=== PATIENT | female | born 1995 | race Caucasian/White ===

== ENCOUNTER 2018-12-05 09:56 | Emergency (ER) | payer BC ==
--- OUTSIDE RECORDS SUMMARY | 2018-12-05 10:10 | XMS REPORT | Continuity of Care Document ---
:1995 External Reference #:[id number] Author Name Gary Garnica MD Address [address] [place] [address] Problems Active Problems Provider Date Allergy Gary Garnica MD Onset: 07/31/2011 Anxiety state Blanka Cuellar PA-C Onset: 11/12/2015 Anemia Blanka Cuellar PA-C Onset: 11/12/2015 Indigestion Blanka Cuellar PA-C Onset: 11/12/2015 Social History Type Date Description Comments Sex Unknown Tobacco Use Reviewed: 11/06/17 Never Smoked Cigarettes ETOH Use Denies alcohol use Tobacco Use Reviewed: 10/21/18 Patient has never smoked Smoking Status Reviewed: 10/21/18 Patient has never smoked Exercise Type/Frequency Dances 3 times a week Allergies, Adverse Reactions, Alerts Description No Known Drug Allergies Medications Active Medications SIG Qnty Indications Ordering Provider Date Ferrous Sulfate 1 by mouth 90tabs D50.8 Gary Garnica MD 07/13/2014 325(65Fe) every day mg Tablets DR D64.9 Fluoxetine HCL 1 by mouth every 90caps F41.9 Gary Garnica MD 12/16/2013 20mg Capsules day F41.1 Depo-Provera 150mg intramuscular every 3 Unknown 150mg/ml Suspension months Medications Administered in Office Medication SIG Qnty Indications Ordering Provider Date TB Intradermal Test PRATIBHA Bell 10/27/2013 Injection Immunizations CPT Code Status Date Vaccine Lot # [id number] Given 11/08/2016 MMR Vaccine [id number] Given 10/27/2016 Hepatitis A Adult Vaccine 19+ (Vacta A Adult) [id number] 60674 Given 06/17/2016 Gardasil 9, HPV Nonavalent [id number] 29844 Given 02/14/2016 Gardasil 9, HPV Nonavalent [id number] 56706 Given 12/10/2015 Gardasil 9, HPV Nonavalent [id number] 40752 Given 02/03/2013 Menactra - Meningococcal Conjugate Vaccine [id number] 65044 Given 07/27/2010 Hepatitis A Vaccine Peds/Adoles. (To Age 19) 2 Dose Schedule 91449 Given 11/14/2007 Menactra - Meningococcal Conjugate Vaccine 82870 Given 11/14/2007 Varicella (Chicken Pox) Vaccine 38991 Given 11/14/2007 Adacel - Tdap [facility] 56168-914-49 03/20 cc 91158 Given 11/14/2007 Flu Mist (Age 2-49) Live Vaccine- 38238 Given 08/01/2006 Hepatitis B Vaccine Pediatric/Adolescent 25409 Given 08/06/2001 Poliovirus Vaccine Subcutaneous 45376 Given 08/06/2001 MMR Vaccine 89079 Given 08/06/2001 Daptacel - DTaP Vaccine 36918 Given 12/21/1997 Daptacel - DTaP Vaccine 06625 Given 08/26/1997 MMR Vaccine 39077 Given 08/26/1997 Hib PRP-T Conjugate 4 Dose Schedule 13213 Given 06/03/1997 Varicella (Chicken Pox) Vaccine 70261 Given 06/03/1997 Poliovirus Vaccine Subcutaneous 46368 Given 03/02/1997 Hepatitis B Vaccine Pediatric/Adolescent 18149 Given 1996 Daptacel - DTaP Vaccine 67010 Given 1996 Hib PRP-T Conjugate 4 Dose Schedule 84282 Given 1996 Poliovirus Vaccine Subcutaneous 15492 Given 1996 Daptacel - DTaP Vaccine 74110 Given 1996 Hib PRP-T Conjugate 4 Dose Schedule 09556 Given 1996 Hepatitis B Vaccine Pediatric/Adolescent 74913 Given 1996 Poliovirus Vaccine Subcutaneous 58149 Given 1996 Daptacel - DTaP Vaccine 60278 Given 1996 Hib PRP-T Conjugate 4 Dose Schedule 35002 Given 1996 Hepatitis B Vaccine Pediatric/Adolescent Vital Signs Date Vital Result Comment 10/21/2018 1:16pm BP Systolic 108 mmHg BP Diastolic 64 mmHg Heart Rate 70 /min Body Temperature 98.0 F Respiratory Rate 16 /min Weight 124.00 lb Weight 56.246 kg Height 61.5 inches 5'1.50" BMI (Body Mass Index) 23.0 kg/m2 11/06/2017 8:18am BP Systolic 122 mmHg BP Diastolic 80 mmHg Heart Rate 94 /min Body Temperature 98.1 F Respiratory Rate 16 /min Weight 111.00 lb Weight 50.350 kg Height 61.5 inches 5'1.50" BMI (Body Mass Index) 20.6 kg/m2 Results Test Date Facility Test Result H/L Range Note CBC/Automated Differential 10/21/2018 [facility] WBC 7.58 k/uL 4.60- 10.20 Abs Neut 4.66 2.00-7.50 % Neut 61.6 % 37.0-80.0 Abs Lymphs 2.03 K/UL 1.20-4.80 % Lymphs 26.8 % 10.0-50.0 Abs Monos 0.679 0.000-0.900 % Monos 8.96 % 0.00-12.00 Abs Eos 0.109 0.000-0.700 % Eos 1.44 % 0.00-7.00 Abs Basos 0.093 0.000-0.200 % Baso 1.22 % 0.00-4.00 RBC 5.21 m/uL 4.04-6.13 Hemoglobin 13.7 g/dL 12.2-18.1 Hematocrit 41.3 % 37.7-47.0 MCV 79.2 fL Low 80.0-97.0 MCH 26.2 pg Low 27.0-31.2 MCHC 33.1 g/dL 31.8-35.4 RDW 10.9 % Low 11.6-14.8 Platelet 293 K/uL 142-424 MPV 9.4 fL 0.0-99.9 Comprehensive Metabolic 10/21/2018 [facility] Glucose 86.00 mg/dL 70.00- 110.00 Panel Urea Nitrogen 8 mg/dL 7-19 Creatinine 0.8 mg/dL 0.6-1.1 GFR 99.29 mL/min 1 Sodium 137 mmol/L 136-145 Potassium 4.5 mmol/L 3.5-5.1 Chloride 105 mmol/L 98-107 Total Protein 7.4 g/dL 6.4-8.3 Alb P 4.40 g/dL 3.30-5.00 Alanine Aminotransferase 12 U/L 0-55 Aspartate Aminotransferase 17 U/L 5-34 Alkaline Phosphatase 116 U/L 40-150 Carbon Dioxide 25.00 mmol/L 22.00-31.00 Albumin/Globulin 1.47 Ratio Osmolality 281.63 275.00-295.00 Calcium 10.40 mg/dL 8.90-10.40 Total Bilirubin 0.5 mg/dL 0.2-1.2 Globulin 3.00 2.30-4.20 BUN/Creatinine 10.39 Ratio Laboratory test finding 10/21/2018 [facility] Folic Acid 10.80 ng/mL 7.00-31.40 Iron 106.00 g/dL 25.00-156.00 Free T4 1.15 ng/dL 0.70-1.48 TSH 1.030 uIU/mL 0.350-4.940 Anti Thyroid Antibodies 10/21/2018 [facility] Thyroglobulin Ab <20 IU/mL (<40) 2 Anti-Microsomal (Anti-Tpo) 13 IU/mL (<35) 3 1 NORMAL FUNCTION OR MILD RENAL DISEASE:>60 ml/min ADVANCED RENAL DISEASE:15-59 ml/min RENAL FAILURE:<15 ml/min 2 Unless otherwise specified, testing performed by Laboratory [facility] [address] [place] [id number] 3 Unless otherwise specified, testing performed by [facility] [address] [place] [id number] Procedures Description No Information Available Medical Devices Description No Information Available Encounters Type Date Location Provider Dx Diagnosis Office Visit 10/21/2018 [address] Gary Garnica, E04.1 Nontoxic single 1:00p thyroid nodule D64.9 Anemia, unspecified F41.1 Generalized anxiety disorder Assessments Date Code Description Provider 10/21/2018 E04.1 Nontoxic single thyroid nodule Gary Garnica MD 10/21/2018 D64.9 Anemia, unspecified Gary Garnica MD 10/21/2018 F41.1 Generalized anxiety disorder Gary Garnica MD Plan of Treatment 10/21/2018 - Gary Garnica MDE04.1 Nontoxic single thyroid noduleNew Xrays: Thyroid/Parathyroid Ultrasound, Ordered: 10/21/18Comments: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 we will check labs today and notify her of results order for sonogram given to patient to have at [id number] Anemia, unspecifiedComments: Continue with current medications. we will check labs today and notify her of [id number] Generalized anxiety disorderComments:Take medication as prescribed. Pt advised to exercise regularly to help promote feeling good, and follow healthy diet. Try exercising with a friend to help motivate. Call with any persistent or worsening symptoms. Functional Status Functional Condition Comment Date Status .None 07/31/2011 Active Mental Status Description No Information Available Referrals Description No Information Available
--- OUTSIDE RECORDS SUMMARY | 2018-12-05 10:10 | XMS REPORT | Continuity of Care Document ---
:1995 External Reference #:[id number] Author Name Gary Garnica MD Address [address] [place] [address] Problems Active Problems Provider Date Allergy Gary [...] CPT Code Status Date Vaccine Lot # [id number] Given 11/08/2016 MMR Vaccine [id number] 96785 Given 10/27/2016 Hepatitis A Adult Vaccine 19+ (Vacta A Adult) [id number] 06494 Given 06/17/2016 Gardasil 9, HPV Nonavalent [id number] 73619 Given 02/14/2016 Gardasil 9, HPV Nonavalent [id number] 33774 Given 12/10/2015 Gardasil 9, HPV Nonavalent [id number] 84891 Given 02/03/2013 Menactra - Meningococcal Conjugate Vaccine [id number] 47440 Given 07/27/2010 Hepatitis A Vaccine Peds/Adoles. (To Age 19) 2 Dose Schedule 61639 Given 11/14/2007 Menactra - Meningococcal Conjugate Vaccine 09617 Given 11/14/2007 Varicella (Chicken Pox) Vaccine 76634 Given 11/14/2007 Adacel - Tdap [facility] 45758-875-07 03/20 cc 49375 Given 11/14/2007 Flu Mist (Age 2-49) Live Vaccine- 59021 Given 08/01/2006 Hepatitis B Vaccine Pediatric/Adolescent 58318 Given 08/06/2001 Poliovirus Vaccine Subcutaneous 35063 Given 08/06/2001 MMR Vaccine 92389 Given 08/06/2001 Daptacel - DTaP Vaccine 94740 Given 12/21/1997 Daptacel - DTaP Vaccine 71770 Given 08/26/1997 MMR Vaccine 91033 Given 08/26/1997 Hib PRP-T Conjugate 4 Dose Schedule 32891 Given 06/03/1997 Varicella (Chicken Pox) Vaccine 73038 Given 06/03/1997 Poliovirus Vaccine Subcutaneous 10061 Given 03/02/1997 Hepatitis B Vaccine Pediatric/Adolescent 53795 Given 1996 Daptacel - DTaP Vaccine 13608 Given 1996 Hib PRP-T Conjugate 4 Dose Schedule 66931 Given 1996 Poliovirus Vaccine Subcutaneous 37660 Given 1996 Daptacel - DTaP Vaccine 07683 Given 1996 Hib PRP-T Conjugate 4 Dose Schedule 95824 Given 1996 Hepatitis B Vaccine Pediatric/Adolescent 83630 Given 1996 Poliovirus Vaccine Subcutaneous 68185 Given 1996 Daptacel - DTaP Vaccine 86803 Given 1996 Hib PRP-T Conjugate 4 Dose Schedule 00900 Given 1996 Hepatitis B Vaccine Pediatric/Adolescent Vital [...] Unless otherwise specified, testing performed by [facility] [address] [place] [id number] Unless otherwise specified, testing performed by [facility] [address] [place] [id number] Procedures Description No Information Available Medical Devices [...] - Gary Garnica MDE04.1 Nontoxic single thyroid noduleComments: 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 we will check labs today and notify her of results order for sonogram given to patient to have at [id number] Anemia, unspecifiedComments:Continue with current medications. we will check labs today and notify her of [id number] Generalized anxiety disorderComments:Take medication as prescribed. Pt advised to exercise regularly to help promote feeling good, and follow healthy diet. Try exercising with a friend to help motivate. Call with any persistent or worsening symptoms. Functional Status Functional Condition Comment Date Status .None 07/31/2011 Active Mental Status Description No Information Available Referrals Description No Information Available
[2018-12-05 11:07] LABS: Urine Appearance Cloudy; Urine Bacteria 1+ (Absent); Urine Bilirubin Negative (Negative); Urine Blood Negative (Negative); Urine Color Yellow; Urine Glucose Negative (Negative); Urine Ketones Trace (Negative); Urine Nitrite Negative (Negative); Urine Protein 1+(30 mg/dL) (Negative); Urine Red Blood Cell 2+(6-10/hpf) (Absent); Urine Specific Gravity 1.038 (1.010-1.030); Urine Squamous Epithelial Cell Present (Absent); Urine Urobilinogen Negative (Negative); Urine White Blood Cell Trace(0-5/hpf) (Absent)
[2018-12-05] MEDS ORDERED: Ketorolac INJ* 30 MG/ML 1 ML VIAL IV PUSH ONE (12:48)
[2018-12-05] MEDS ORDERED: Ondansetron INJ* 2 MG/ML VIAL IV ONE (12:48)
[2018-12-05] MEDS ORDERED: NS 0.9% 1000 ML** 1,000 ML IV ONE (12:48)
--- NOTE | 2018-12-05 12:53 | ED ---
Abdominal Pain/Female - HPI Summary HPI Summary: Patient is a 23-year-old female who presents emergency department for acute right flank pain and right lower quadrant pain that started this morning. Associated symptoms of nausea, diarrhea and dark urine. Past medical history of depression. Receives Depo-Provera. No history of kidney stones. Pain is constant and sharp in nature. Denies associated symptoms of fever, vomiting, cough, sore throat. Symptoms are moderate in severity. No current modifying factors. - History of Current Complaint Chief Complaint: EDAbdPain Stated Complaint: FLANK PAIN PER PT Time Seen by Provider: 12/05/18 12:32 Pain Intensity: 6 Allergies/Adverse Reactions: Allergies Allergy/AdvReac Type Severity Reaction Status Date / Time No Known Allergies Allergy Verified 12/05/18 09:59 PMH/Surg Hx/FS Hx/Imm Hx Previously Healthy: Yes Infectious Disease History: No Infectious Disease History: Denies: Traveled Outside the [place] in Last 30 Days - Family History Known Family History: Positive: Non-Contributory - Social History Occupation: Employed Full-time Lives: With Family Alcohol Use: None Substance Use Type: Reports: None Smoking Status (MU): Never Smoked Tobacco Review of Systems Constitutional: Negative Negative: Fever, Chills ENT: Negative Cardiovascular: Negative Respiratory: Negative Positive: Abdominal Pain, Diarrhea, Nausea. Negative: Vomiting Positive: flank pain, hematuria Skin: Negative Neurological: Negative All Other Systems Reviewed And Are Negative: Yes Physical Exam Triage Information Reviewed: Yes Vital Signs On Initial Exam: Initial Vitals Temp Pulse Resp BP Pulse Ox 97.8 F 76 16 136/88 99 12/05/18 10:00 12/05/18 10:00 12/05/18 10:00 12/05/18 10:00 12/05/18 10:00 Vital Signs Reviewed: Yes Appearance: Positive: Pain Distress - Pt. lying in bed, appears uncomfortable but nontoxic. Skin: Positive: Warm, Dry Head/Face: Positive: Normal Head/Face Inspection Eyes: Positive: Normal, EOMI Neck: Positive: Supple Respiratory/Lung Sounds: Positive: Clear to Auscultation, Breath Sounds Present Cardiovascular: Positive: Normal, RRR Abdomen Description: Positive: Other: - Right CVA tenderness. Pain to RLQ on palpation with guarding. No rebound or guarding. Neurological: Positive: Normal, CN Intact II-III Psychiatric: Positive: Affect/Mood Appropriate Diagnostics - Vital Signs Vital Signs Temp Pulse Resp BP Pulse Ox 12/05/18 12:42 98.0 F 12/05/18 11:26 99.1 F 78 20 129/90 100 12/05/18 10:00 97.8 F 76 16 136/88 99 - Laboratory Lab Results: Lab Results 12/05/18 Range/Units 10:36 Urine Color Yellow Urine Appearance Cloudy Urine pH 5.0 (5-9) Ur Specific Halls 1.038 H (1.010-1.030) Urine Protein 1+(30 mg/dl) A (Negative) Urine Ketones Trace A (Negative) Urine Blood Negative (Negative) Urine Nitrate Negative (Negative) Urine Bilirubin Negative (Negative) Urine Urobilinogen Negative (Negative) Ur Leukocyte Esterase Negative (Negative) Urine WBC (Auto) Trace(0-5/hpf) (Absent) Urine RBC (Auto) 2+(6-10/hpf) A (Absent) Ur Squamous Epith Cells Present A (Absent) Calcium Oxalate Crystal Present A (Absent) Urine Bacteria 1+ A (Absent) Urine Glucose Negative (Negative) Urine Ascorbic Acid * A (Negative) Result Diagrams: 12/05/18 12:55 12/05/18 12:55 Lab Statement: Any lab studies that have been ordered have been reviewed, and results considered in the medical decision making process. Abdominal Pain Fem Course/Dx - Course Course Of Treatment: Patient presenting for right flank and right lower quadrant pain. She is afebrile with stable vital signs. Suspect ureterolithiasis versus ovarian cyst versus UTI versus appendicitis. IV Toradol , Zofran and fluids. Labs show leukocytosis of 14.8 and minimally elevated lactic acid 2.1. Urinalysis shows RBCs without signs of infection. CT scan shows a right 2 mm distal calculus with mild [place], reading per radiology. Reexamination patient is feeling better and pain is mild at this time. Results were discussed. We'll discharge home with a short prescription for hydrocodone , Flomax and Zofran. Advised to increase fluids, strain urine. Follow-up with urology if pain persists. To return to the ER for fever, uncontrolled vomiting , pain or if concerned. Patient understands and agrees with plan. - Diagnoses Differential Diagnosis: Positive: Appendicitis, Ovarian Cyst, Renal Colic, Urinary Tract Infection Provider Diagnoses: Urolithiasis Discharge ED - Sign-Out/Discharge Documenting (check all that apply): Patient Departure Patient Received Moderate/Deep Sedation with Procedure: No - Discharge Plan Condition: Improved Disposition: HOME Prescriptions: Hydrocodone/Acetaminophen [Hydrocodone-Acetamin 5-325 mg] 1 each PO Q6H #12 tablet MDD 4 Ondansetron TAB* [Zofran 4 MG Tab*] 4 mg PO Q6H PRN #12 tab PRN Reason: Nausea Tamsulosin CAP* [Flomax CAP*] 0.4 mg PO DAILY #5 cap Patient Education Materials: Kidney Stones (ED) Referrals: Danika CARL,Gary Carrion [Primary Care Provider] - Ryder Albert MD [Medical Doctor] - Additional Instructions: Follow up with urology if pain persist Medication as directed Increase fluids Strain urine Return to ER for uncontrolled pain/vomiting, fever, or if concerned - Billing Disposition and Condition Condition: IMPROVED Disposition: Home
[2018-12-05 13:05] LABS: ABS Basophils 0.1 10^3/ul (0-0.2); ABS Lymphocytes 0.8 10^3/ul (1.0-4.8); ABS Monocytes 0.8 10^3/ul (0-0.8); ABS Neutrophils 13.1 10^3/ul (1.5-7.7); Hematocrit 40 % (35-47); Hemoglobin 13.3 g/dL (12.0-16.0); Lymphocyte % 5.6 %; Mean Corpuscular HGB Conc 34 g/dL (31-36); Mean Corpuscular Hemoglobin 27 pg (27-31); Mean Corpuscular Volume 82 fL (80-97); Mean Platelet Volume 9.8 fL (7.4-10.4); Platelet Count 263 10^3/uL (150-450); Red Blood Count 4.85 10^6 /uL (3.70-4.87); Red Cell Distribution Width 13 % (10-15); White Blood Count 14.8 10^3/uL (3.5-10.8)
[2018-12-05 13:27] LABS: ALT 11 U/L (7-52); AST 19 U/L (13-39); Albumin 4.4 g/dL (3.2-5.2); Albumin/Globulin Ratio 1.8 (1-3); Alkaline Phosphatase 103 U/L (34-104); Anion Gap 11 mmol/L (2-11); BUN/Creatinine Ratio 11.1 (8-20); Blood Urea Nitrogen 10 mg/dL (6-24); C Reactive Protein 3.63 mg/L (<8.01); CO2 Carbon Dioxide 20 mmol/L (22-32); Calcium 9.6 mg/dL (8.6-10.3); Chloride 103 mmol/L (101-111); EGFR African American 94.7 (>60); EGFR Non-African American 78.3 (>60); Globulin 2.4 g/dL (2-4); Glucose 106 mg/dL (70-100); Potassium 3.6 mmol/L (3.5-5.0); Sodium 134 mmol/L (135-145); Total Protein 6.8 g/dL (6.4-8.9)
[2018-12-05 13:30] LABS: HCG Pregnancy < 0.60 mIU/mL
[2018-12-05 14:59] VITALS: BP 101/75
== END 2018-12-05 14:55 | disposition home or self-care (01) ==
LOC: ED 09:56
DX: N13.2 Hydronephrosis with renal and ureteral calculous obstruction (principal)
CPT/HCPCS: 36415; 74176; 80053; 81003; 81015; 83605; 83690; 84702; 85025; 86140; 87086; 96361; 96374; 96375; 99283; J1885; J2405